=== PATIENT | male | born 1955 ===

== ENCOUNTER → 2017-11-13 | Outpatient (REF) | LOC: ZZSLMC 12:00 | PROVIDERS: ATTEND Family Medicine | DX: D12.6 Benign neoplasm of colon, unspecified (principal) | CPT/HCPCS: 88305 ==

== ENCOUNTER → 2019-01-06 | Outpatient (REF) | LOC: ZZSLMC 12:00 | PROVIDERS: ATTEND Family Medicine | DX: L82.1 Other seborrheic keratosis (principal) | CPT/HCPCS: 88305 ==